=== PATIENT | female | born 1960 | race Caucasian/White ===

== ENCOUNTER 2019-12-14 12:24 | Emergency (ER) | payer MEDICARE, BC ==
[~2019-12-14] VITALS: Ht 162.6 cm; Wt 84.8 kg
[~2019-12-14 12:24] MED LIST: IBUP-1954 PO
[2019-12-14] MEDS ORDERED: LOVA20TA2 PO (12:37)
[2019-12-14] MEDS ORDERED: ASPI81TA31 PO (12:37)
--- NOTE | 2019-12-14 13:10 | NUR ---
Patient discharged to home in stable condition. Written and verbal after care instructions given. Patient verbalizes understanding of instructions. Stressed follow up or return to ER for worsening s/s.pt walks in steady gait.
== END 2019-12-14 13:22 | disposition home or self-care (01) ==
LOC: ER 12:24
DX: M25.552 Pain in left hip (principal); Z96.642 Presence of left artificial hip joint; W01.0XXA Fall on same level from slipping, tripping and stumbling without subsequent striking against object, initial encounter; Y99.8 Other external cause status; E78.5 Hyperlipidemia, unspecified; Z79.899 Other long term (current) drug therapy; Z79.82 Long term (current) use of aspirin
CPT/HCPCS: 72170; A4663